=== PATIENT | female | born 1995 | race Native Hawaiian/Other Pacific Islander ===

== ENCOUNTER 2018-07-19 17:31 | Emergency (ER) | payer OTHER ==
[~2018-07-19] VITALS: Ht 167.6 cm; Wt 77.1 kg
[2018-07-19 20:24] VITALS: BP 131/78; TEMP 97.8
== END 2018-07-19 20:24 | disposition home or self-care (01) ==
LOC: ED 17:31
DX: J30.9 Allergic rhinitis, unspecified (principal); H92.01 Otalgia, right ear
CPT/HCPCS: 96372; 99283; J1885

== ENCOUNTER 2019-06-25 15:48 | Emergency (ER) | payer OTHER ==
[~2019-06-25] VITALS: Ht 167.6 cm; Wt 131.5 kg
[2019-06-25 16:05] VITALS: TEMP 98.2
[2019-06-25 18:00] VITALS: BP 144/78
== END 2019-06-25 18:00 | disposition home or self-care (01) ==
LOC: ED 15:48
PROC: 2W3QX1Z Immobilization of Right Lower Leg using Splint (ICD-10-PCS; principal; 2019-06-25)
DX: S82.64XA Nondisplaced fracture of lateral malleolus of right fibula, initial encounter for closed fracture (principal); X50.1XXA Overexertion from prolonged static or awkward postures, initial encounter
CPT/HCPCS: 96372; 99283; J1885

== ENCOUNTER 2019-08-01 11:00 | Emergency (ER) | payer OTHER ==
[~2019-08-01] VITALS: Ht 167.6 cm; Wt 132.9 kg
[2019-08-01 11:50] VITALS: BP 134/67; TEMP 97.7
== END 2019-08-01 11:50 | disposition home or self-care (01) ==
LOC: ED 11:00
DX: H66.91 Otitis media, unspecified, right ear (principal); J30.89 Other allergic rhinitis; H92.01 Otalgia, right ear
CPT/HCPCS: 96372; 99283; J1885

== ENCOUNTER 2019-08-24 17:03 | Emergency (ER) | payer OTHER ==
[~2019-08-24] VITALS: Ht 167.6 cm; Wt 132.9 kg
[2019-08-24 18:49] LABS: PLATELET COUNT 251 K/uL (152-353)
[2019-08-24 23:15] VITALS: BP 158/79; TEMP 98.1
== END 2019-08-24 23:15 | disposition home or self-care (01) ==
LOC: ED 17:03
PROVIDERS: Emergency Medicine
DX: E11.9 Type 2 diabetes mellitus without complications (principal); N92.0 Excessive and frequent menstruation with regular cycle
CPT/HCPCS: 36415; 80053; 81000; 81025; 82962; 83036; 85027; 96374; 99284